=== PATIENT | male | born 1945 | race African-American/Black ===

== ENCOUNTER 2017-01-01 20:43 | Emergency (ER) | payer OTHER, MEDICARE ==
[~2017-01-01] VITALS: Ht 182.9 cm; Wt 136.5 kg
[2017-01-01 21:49] VITALS: BP 113/68; PULSE 76; RESP 18; TEMP 99; O2SAT 96
--- NOTE | 2017-01-01 22:06 | PD ---
HPI Chief Complaint: Pain: Acute or Chronic Time Seen by Provider: 22:06 Travel History International Travel<30 days: No Contact w/Intl Traveler<30days: No Traveled to known affect area: No History of Present Illness HPI 71 year old male with history of gout presents to the ED via EVAC for evaluation of bilateral great toe pain. Pain is rated 8/10, 10/10 on attempted ambulation. He denies numbness, tingling, limitations to range of motion or loss of strength of either lower extremity. Patient states that he is having a gout flare, pain is the same pain he's had in the past. He states that he is prescribed allopurinol and gabapentin, last dose of medication 8 am. [facility] but that there are medications "don't do anything for my pain. PFSH Past Medical History Cardiovascular Problems: Yes (HTN) Diabetes: Yes Social History Tobacco Use: No Allergies-Medications (Allergen,Severity, Reaction): Coded Allergies: No Known Allergies (Unverified , 01/01/17) Reported Meds & Prescriptions Reported Meds & Active Scripts Active Lortab (Hydrocodone-Acetaminophen) 5-325 Mg Tab 1 Tab PO Q6H PRN Reported Novolog Mix 70-30 Inj (Insulin Aspart Prota 70%/Aspart 30%) 1,000 Unit/10 Ml Vial 1 Units SQ Atenolol 100 Mg Tab 100 Mg PO DAILY Allopurinol 100 Mg Tab 100 Mg PO DAILY Aspirin Low Dose (Aspirin) 81 Mg Chew 81 Mg CHEW DAILY Amlodipine (Amlodipine Besylate) 10 Mg Tab 10 Mg PO DAILY Lasix (Furosemide) 20 Mg Tab 20 Mg PO DAILY Lisinopril 40 Mg Tab 40 Mg PO DAILY Lyrica (Pregabalin) 100 Mg Cap 100 Mg PO TID Review of Systems Except as stated in HPI: all other systems reviewed are Neg Physical Exam Narrative GENERAL: Well-nourished, well-developed irritable black male sitting on the end of the stretcher with his feet dangling to the ground. SKIN: Warm and dry. HEAD: Normocephalic. EYES: No scleral icterus. No injection or drainage. NECK: Supple, trachea midline. No JVD or lymphadenopathy. CARDIOVASCULAR: Regular rate and rhythm without murmurs, gallops, or rubs. RESPIRATORY: Breath sounds equal bilaterally. No accessory muscle use. GASTROINTESTINAL: Abdomen soft, non-tender, nondistended. MUSCULOSKELETAL: 2+ DP pulses bilaterally. TTP of bilateral MCP joints of the great toes. Patient is able to flex and extend the toes bilaterally. No edema. No warmth. No erythema. Neurovascularly intact. BACK: Nontender without obvious deformity. No CVA tenderness. Data Data Last Documented VS Vital Signs Date Time Temp Pulse Resp B/P Pulse Ox O2 Delivery O2 Flow Rate FiO2 01/01/17 21:49 99.0 76 18 113/68 96 Orders Acetamin-Hydrocod 325-7.5 Mg ([place] 7.5 (01/01/17 22:15) Gabapentin (Neurontin) (01/01/17 22:15) Crutches (01/01/17 22:54) MDM Medical Decision Making Medical Screen Exam Complete: Yes Emergency Medical Condition: Yes Differential Diagnosis Polyarthropathy versus gout versus malingering versus acute on chronic pain versus septic arthritis versus other Narrative Course 71 year old male with history of gout presents to the ED via EVAC for evaluation of bilateral great toe pain. Pain is rated 8/10, 10/10 on attempted ambulation. He denies numbness, tingling, limitations to range of motion or loss of strength of either lower extremity. Patient states that he is having a gout flare, pain is the same pain he's had in the past. He states that he is prescribed allopurinol and gabapentin, last dose of medication 8 am. [facility] but that there are medications "don't do anything for my pain." Vitals reviewed. Physical exam reveals an-year-old black male sitting up on the stretcher, legs dangling over towards the floor. 2 + DP pulses bilaterally. TTP of bilateral MCP joints of the great toes. Patient is able to flex and extend the toes bilaterally. No edema. No warmth. No erythema. Neurovascularly intact. This is gout flare. Patient was administered by mouth Lortab and gabapentin. Recheck reveals improvement of symptoms after 25 minutes. I stressed the importance of symptomatic care, compliance with his medications. I instructed the patient to follow up with the primary care provider, increases allopurinol dose to 1 whole pill daily for the next week. I provided #7 5 mg Lortab for pain greater than 6 on the pain scale. The patient requested a pair of crutches and they were provided. He indicated understanding instructions and was amenable to plan of care. He stable and discharged home. Diagnosis Primary Impression: Gout flare Qualified Code: M10.9 - Acute gout involving toe, unspecified cause, unspecified laterality Referrals: Primary Care Physician Patient Instructions: General Instructions, Gout (ED) Additional Instructions: Rest, ice, elevate the extremities. Apply ice no longer than 10-15 minutes per hour a few times a day. Take allopurinol and gabapentin as prescribed as discussed. Lortab 5 mg every 6-8 hours when necessary pain greater than 6 on the pain scale. Return to normal, gentle activity as tolerated. Follow up with your primary care provider this week. Return to the ED for any urgent or emergent medical condition. Scripts Hydrocodone-Acetaminophen (Lortab)5-325 Mg Tab1 Tab PO Q6H PRN (PAIN) #7 TAB Ref 0 Prov:Todd Alcocer MD 01/01/17 Disposition: 01 DISCHARGE HOME Condition: Stable Gisela Newberry Jan 01, 2017 22:06
[2017-01-01] MEDS ORDERED: LYRI100C PO (22:13)
[2017-01-01] MEDS ORDERED: ATEN100T PO (22:13)
[2017-01-01] MEDS ORDERED: LISI40TA PO (22:13)
[2017-01-01] MEDS ORDERED: AMLO10TA2 PO (22:13)
[2017-01-01] MEDS ORDERED: FURO1TAB62 PO (22:13)
[2017-01-01] MEDS ORDERED: ALLO100T PO (22:13)
[2017-01-01] MEDS ORDERED: ASPI81CH37 CHEW (22:13)
[2017-01-01] MEDS ORDERED: NOVOLOGMXP SQ (22:13)
[2017-01-01] MEDS ORDERED: ACETAMINOPHEN/HYDROcodone 325 MG/7.5 MG TAB PO ONE (22:15)
[2017-01-01] MEDS ORDERED: GABAPENTIN 100 MG CAP PO ONE (22:15)
[2017-01-01] MEDS ORDERED: HYDR-3533 PO (22:48)
== END 2017-01-01 23:14 | disposition home or self-care (01) ==
LOC: PHEFT 20:43
DX: M10.9 Gout, unspecified (principal); I10 Essential (primary) hypertension; E11.9 Type 2 diabetes mellitus without complications; Z79.4 Long term (current) use of insulin
CPT/HCPCS: 99283; E0113

== ENCOUNTER 2017-02-04 14:39 | Inpatient (IN) | payer MEDICARE, OTHER ==
[~2017-02-04] VITALS: Ht 180.3 cm; Wt 135.5 kg
[~2017-02-04 14:39] MED LIST: ALLO100T PO; AMLO10TA2 PO; ASPI81CH37 CHEW; ATEN100T PO; FURO1TAB62 PO; HYDR-3533 PO; LISI40TA PO; LYRI100C PO; NOVOLOGMXP SQ
[2017-02-04 14:46] VITALS: BP 138/59; PULSE 77; RESP 18
[2017-02-04] MEDS ORDERED: COLA100C3 PO (14:58)
--- NOTE | 2017-02-04 14:58 | PD ---
HPI Chief Complaint: Edema Time Seen by Provider: 14:56 Travel History International Travel<30 days: No Contact w/Intl Traveler<30days: No Traveled to known affect area: No History of Present Illness HPI 71-year-old male with history of gout, hypertension, DM presents to the ED for evaluation of pain and swelling of bilateral great toes and feet. Gradual onset. Patient endorses chronic diminished sensation in bilateral feet secondary to DM. He endorses recent history of anorexia and anuria. States he' s urinated once in the last 24 hours. States that he's had low appetite for the "last few days." Last BM "about a week ago" well formed, NBNB. He denies fevers , chills, chest pain, SOB, injury to the area, weakness or limitations to range of motion. He states that the pain is 8/10, 10/10 with attempted ambulation. He was seen in the [facility] ED on 01/01/17. He was instructed to double his allopurinol dose for 1 week, provided a brief course of narcotic pain medications. The patient states that he was compliant with the instructions and was ambulatory for approximately one week. However, [facility] not [facility]. PFSH Past Medical History Cardiovascular Problems: Yes (HBP) Diabetes: Yes (INSULIN) Patient Takes Glucophage: No (INSULIN) Diminished Hearing: No Gout: Yes Hypertension: Yes Medical other: Yes (DM) Tetanus Vaccination: < 5 Years Influenza Vaccination: Yes Past Surgical History Other Surgery: Yes (colonoscopy) Social History Alcohol Use: No Tobacco Use: No Substance Use: No Allergies-Medications (Allergen,Severity, Reaction): Coded Allergies: No Known Allergies (Unverified , 02/04/17) Reported Meds & Prescriptions Reported Meds & Active Scripts Active Lortab (Hydrocodone-Acetaminophen) 5-325 Mg Tab 1 Tab PO Q6H PRN Reported Colace (Docusate Sodium) 100 Mg Cap 100 Mg PO BID Novolog Mix 70-30 Inj (Insulin Aspart Prota 70%/Aspart 30%) 1,000 Unit/10 Ml Vial 1 Units SQ Atenolol 100 Mg Tab 100 Mg PO DAILY Allopurinol 100 Mg Tab 100 Mg PO DAILY Aspirin Low Dose (Aspirin) 81 Mg Chew 81 Mg CHEW DAILY Amlodipine (Amlodipine Besylate) 10 Mg Tab 10 Mg PO DAILY Lasix (Furosemide) 20 Mg Tab 20 Mg PO DAILY Lisinopril 40 Mg Tab 40 Mg PO DAILY Lyrica (Pregabalin) 100 Mg Cap 100 Mg PO TID Review of Systems Except as stated in HPI: all other systems reviewed are Neg Physical Exam Narrative GENERAL: Well-nourished, well-developed pleasant black male in no acute distress. SKIN: Focused skin assessment warm/dry. HEAD: Normocephalic. EYES: No scleral icterus. No injection or drainage. NECK: Supple, trachea midline. No JVD or lymphadenopathy. CARDIOVASCULAR: Regular rate and rhythm without murmurs, gallops, or rubs. 2+ DP and radial pulses bilaterally. RESPIRATORY: Breath sounds clear and equal bilaterally. No accessory muscle use. GASTROINTESTINAL: Abdomen soft, non-tender, nondistended. Active bowel sounds. MUSCULOSKELETAL: No cyanosis. 2+ pretibial edema to the knees bilaterally. Tenderness to palpation of bilateral MP joints. No warmth or erythema. Patient retains full, active, painless range of motion of the lower extremities. Neurovascularly intact. BACK: Nontender without obvious deformity. No CVA tenderness. Data Data Last Documented VS Vital Signs Date Time Temp Pulse Resp B/P Pulse Ox O2 Delivery O2 Flow Rate FiO2 02/04/17 16:41 97.8 69 17 112/65 99 Room Air Orders Complete Blood Count With Diff (02/04/17 15:00) Comprehensive Metabolic Panel (02/04/17 15:00) Urinalysis - C+S If Indicated (02/04/17 15:00) Iv Access Insert/Monitor (02/04/17 15:00) Ecg Monitoring (02/04/17 15:00) Oximetry (02/04/17 15:00) B-Type Natriuretic Peptide (02/04/17 15:00) Westergren Sedimentation Rate (02/04/17 15:02) C-Reactive Protein (Crp) (02/04/17 15:02) Uric Acid (02/04/17 15:02) Gabapentin (Neurontin) (02/04/17 15:15) Acetamin-Hydrocod 325-5 Mg ([place] 5-325 (02/04/17 15:15) Sodium Chlor 0.9% 1000 Ml Inj (Ns 1000 M (02/04/17 17:15) Admit Order (Ed Use Only) (02/04/17 17:07) Labs Laboratory Tests Test 02/04/17 15:11 White Blood Count 8.0 TH/MM3 Red Blood Count 4.99 MIL/MM3 Hemoglobin 13.2 GM/DL Hematocrit 39.9 % Mean Corpuscular Volume 80.0 FL Mean Corpuscular Hemoglobin 26.5 PG Mean Corpuscular Hemoglobin 33.1 % Concent Red Cell Distribution Width 14.8 % Platelet Count 202 TH/MM3 Mean Platelet Volume 8.6 FL Neutrophils (%) (Auto) 63.5 % Lymphocytes (%) (Auto) 21.8 % Monocytes (%) (Auto) 13.8 % Eosinophils (%) (Auto) 0.6 % Basophils (%) (Auto) 0.3 % Neutrophils # (Auto) 5.1 TH/MM3 Lymphocytes # (Auto) 1.7 TH/MM3 Monocytes # (Auto) 1.1 TH/MM3 Eosinophils # (Auto) 0.0 TH/MM3 Basophils # (Auto) 0.0 TH/MM3 CBC Comment DIFF FINAL Differential Comment Erythrocyte Sedimentation Rate 59 mm/hr Sodium Level 138 MEQ/L Potassium Level 3.7 MEQ/L Chloride Level 101 MEQ/L Carbon Dioxide Level 30.5 MEQ/L Anion Gap 7 MEQ/L Blood Urea Nitrogen 32 MG/DL Creatinine 2.21 MG/DL Estimat Glomerular Filtration 36 ML/MIN Rate Random Glucose 172 MG/DL Uric Acid 8.2 MG/DL Calcium Level 9.5 MG/DL Total Bilirubin 1.0 MG/DL Aspartate Amino Transf 70 U/L (AST/SGOT) Alanine Aminotransferase 46 U/L (ALT/SGPT) Alkaline Phosphatase 114 U/L C-Reactive Protein 15.00 MG/DL B-Type Natriuretic Peptide 4 PG/ML Total Protein 7.8 GM/DL Albumin 2.6 GM/DL [facility] Medical Decision Making Medical Screen Exam Complete: Yes Emergency Medical Condition: Yes Differential Diagnosis gout versus diabetic neuropathy versus DVT versus dependent edema versus CHF versus ANT versus other Narrative Course 71-year-old male with history of gout, hypertension, DM presents to the ED for evaluation of pain and swelling of bilateral great toes and feet. Gradual onset. Pain rated 8/10, 10/10 with ambulation. Patient endorses chronic diminished sensation in bilateral feet secondary to DM. States he's urinated once in the last 24 hours. States that he's had low appetite for the "last few days." Last BM "about a week ago" well formed, NBNB. He denies fevers, chills, chest pain, SOB, injury to the area, weakness or limitations to range of motion. Follow[facility] by [facility] in [place]. Vitals reviewed. Physical exam reveals a pleasant white male in no acute distress. CTAB, abdomen soft, nontender. No CVA tenderness. 2+ pitting edema to the knees bilaterally. Positive tenderness to palpation of the MP joint of bilateral feet. No limitations to range of motion. Neurovascularly intact. IV was established. Patient was placed on continuous monitoring. CBC: No leukocytosis or anemia. CMP: BUN 32, creatinine 2.21. No records available to evaluate patient's baseline. ESR 59, CRP 15, uric acid 8.2. Bladder scan: 0cc urine in bladder UA: unable to obtain Patient was administered a liter of normal saline, by mouth [place] and gabapentin. He did report some improvement of his symptoms. I discussed the results of the workup with the patient. He does endorse distant history of acute kidney injury secondary to metformin misuse some years ago. He is unsure of his baseline creatinine. He states he does not see a underwear finisher. I recommend admission and the patient is amenable. Discussed the case with Dr. Daniel, given his elevated creatinine and anuria will admit for ANT and gout. I discussed the patient with Dr. Cueto who agrees to accept him to the medical service. Please see his notes for disposition. Diagnosis Primary Impression: ANT (acute kidney injury) Additional Impression: Gout flare Qualified Code: M10.9 - Acute gout involving toe, unspecified cause, unspecified laterality Gisela Newberry Feb 04, 2017 14:58 Gisela Newberry Feb 04, 2017 14:58
[2017-02-04 15:01] VITALS: RESP 17; O2SAT 99
[2017-02-04] MEDS ORDERED: GABAPENTIN 100 MG CAP PO ONE (15:15)
[2017-02-04] MEDS ORDERED: ACETAMINOPHEN/HYDROcodone 325 MG/5 MG TAB PO ONE (15:15)
[2017-02-04 15:45] LABS: AUTOMATED NEUTROPHIL # 5.1 TH/MM3 (1.8-7.7); BASOPHIL % 0.3 % (0.0-2.0); EOSINOPHIL % 0.6 % (0.0-4.0); HEMATOCRIT 39.9 % (39.0-51.0); HEMO FLAGS DIFF FINAL; LYMPH % 21.8 % (9.0-44.0); LYMPHOCYTE # 1.7 TH/MM3 (1.0-4.8); MEAN CORPUSCULAR HEMOGLOBIN 26.5 PG (27.0-34.0); MEAN CORPUSCULAR HGB CONC 33.1 % (32.0-36.0); MONO % 13.8 % (0.0-8.0); NEUT % 63.5 % (16.0-70.0); PLATELET COUNT 202 TH/MM3 (150-450); RED BLOOD COUNT 4.99 MIL/MM3 (4.50-5.90); RED CELL DISTRIBUTION WIDTH 14.8 % (11.6-17.2)
[2017-02-04 16:11] LABS: ALKALINE PHOSPHATASE 114 U/L (45-117); ALT (GPT) 46 U/L (12-78); ANION GAP 7 MEQ/L (5-15); AST (GOT) 70 U/L (15-37); BICARBONATE 30.5 MEQ/L (21.0-32.0); BLOOD UREA NITROGEN 32 MG/DL (7-18); CHLORIDE 101 MEQ/L (98-107); GLOMERULAR FILTRATION RATE 36 ML/MIN (>89); POTASSIUM 3.7 MEQ/L (3.5-5.1); SODIUM (NA) 138 MEQ/L (136-145)
[2017-02-04 16:24] LABS: URIC ACID 8.2 MG/DL (2.6-7.2)
[2017-02-04 16:41] VITALS: BP 112/65; PULSE 69; RESP 17; TEMP 97.8; O2SAT 99
[2017-02-04] MEDS ORDERED: SODIUM CHLOR 0.9% 1000 ML INJ 1,000 ML IV ONE (17:15)
[2017-02-04] MEDS ORDERED: DEXTROSE 50% IN WATER 50 ML VIAL(D50) IV PUSH PRN (17:30)
[2017-02-04] MEDS ORDERED: GLUCAGON 1 MG/ML VIAL OTHER PRN (17:30)
[2017-02-04] MEDS ORDERED: ACETAMINOPHEN/HYDROcodone 325 MG/5 MG TAB PO PRN (17:30)
[2017-02-04] MEDS ORDERED: SODIUM CHLORID 0.9% 500 ML INJ 500 ML IV ONE (17:30)
[2017-02-04] MEDS ORDERED: ACETAMINOPHEN 325 MG TAB PO PRN (17:30)
--- NOTE | 2017-02-04 17:46 | HHI.HP ---
[facility] Primary [facility] Physician No Primary Care Physician Admission Diagnosis ANT, gout flare Diagnoses: (1) Gout flare Diagnosis: Principal Chief Complaint: pain to both feet Travel History International Travel<30 Days: No Contact w/Intl Traveler <30 Da: No Traveled to Known Affected Are: No History of Present Illness patient is a 71 y/o male with history of gout, diabetes and hypertension who presented to ER with pain to both feet. he was seen in ER about a month ago with the same complaint and was discharged home with the impression of gout flare-up. he says that he did well till three days ago when he started to have pain to both feet again. pain is more localized to great toes.he denies any fever or chills but he says that his pain is worse when he's walking. Review of Systems Constitutional: DENIES: Fever, Weight loss, Chills, Night Sweats Eyes: DENIES: Blurred vision, Diplopia, Vision loss, Double Vision Ears, nose, mouth, throat: DENIES: Tinnitus, Vertigo, Throat pain, Epistaxis Respiratory: DENIES: Apneas, Cough, Snoring, Wheezing, Hemoptysis, Sputum production, Shortness of breath Cardiovascular: DENIES: Chest pain, Palpitations, Syncope, Dyspnea on Exertion , PND, Lower Extremity Edema, Orthopnea, Claudication Gastrointestinal: DENIES: Abdominal pain, Black stools, Bloody stools, Constipation, Diarrhea, Nausea, Vomiting, Difficulty Swallowing, Anorexia Genitourinary: DENIES: Urinary frequency, Urgency, Hematuria, Dysuria Musculoskeletal: COMPLAINS OF: Joint pain (both feet.), DENIES: Muscle aches, Stiffness, Joint Swelling Integumentary: DENIES: Rash Neurologic: DENIES: Abnormal gait, Headache, Localized weakness, Paresthesias, Seizures, Speech Problems, Tremor, Poor Balance Psychiatric: DENIES: Anxiety, Confusion, Mood changes, Depression, Hallucinations, Agitation, Suicidal Ideation, Homicidal Ideation, Delusions Past Family Social History Past Medical History diabetes mellitus hypertension gout history of colon cancer Past Surgical History colon resection Reported Medications Colace (Docusate Sodium) 100 Mg Cap 100 Mg PO BID Novolog Mix 70-30 Inj (Insulin Aspart Prota 70%/Aspart 30%) 1,000 Unit/10 Ml Vial 1 Units SQ Atenolol 100 Mg Tab 100 Mg PO DAILY Allopurinol 100 Mg Tab 100 Mg PO DAILY Aspirin Low Dose (Aspirin) 81 Mg Chew 81 Mg CHEW DAILY Amlodipine (Amlodipine Besylate) 10 Mg Tab 10 Mg PO DAILY Lasix (Furosemide) 20 Mg Tab 20 Mg PO DAILY Lisinopril 40 Mg Tab 40 Mg PO DAILY Lyrica (Pregabalin) 100 Mg Cap 100 Mg PO TID Allergies: Coded Allergies: No Known Allergies (Unverified , 02/04/17) Active Ordered Medications Current Medications Gabapentin (Neurontin) 100 mg ONCE ONCE PO Last administered on 02/04/17 15: 15; Start 02/04/17 at 15:15; Stop 02/04/17 at 15:16; Status DC Acetaminophen/ Hydrocodone Bitart 1 tab 1 tab ONCE ONCE PO Last administered on 02/04/17 15:16; Start 02/04/17 at 15:15; Stop 02/04/17 at 15:16; Status DC Sodium Chloride (NS 1000 ml Inj) 1,000 ml @ 999 mls/hr BOLUS ONCE IV Last administered on 02/04/17 17:09; Start 02/04/17 at 17:15; Stop 02/04/17 at 18:15 Social History doesn't smoke or drink. Physical Exam Vital Signs Vital Signs Date Time Temp Pulse Resp B/P Pulse Ox O2 Delivery O2 Flow Rate FiO2 02/04/17 16:41 97.8 69 17 112/65 99 Room Air 02/04/17 16:16 16 02/04/17 15:01 17 99 Room Air 02/04/17 14:51 69 18 98 Room Air 02/04/17 14:46 77 18 138/59 Physical Exam GENERAL: This is a well-nourished, well-developed patient, in no apparent distress. SKIN: No rashes, ecchymoses or lesions. Cool and dry. HEAD: Atraumatic. Normocephalic. No temporal or scalp tenderness. EYES: Pupils equal round and reactive. Extraocular motions intact. No scleral icterus. No injection or drainage. ENT: Nose without bleeding, purulent drainage or septal hematoma. Throat without erythema, tonsillar hypertrophy or exudate. Uvula midline. Airway patent. NECK: Trachea midline. No JVD or lymphadenopathy. Supple, nontender, no meningeal signs. CARDIOVASCULAR: Regular rate and rhythm without murmurs, gallops, or rubs. RESPIRATORY: Clear to auscultation. Breath sounds equal bilaterally. No wheezes , rales, or rhonchi. GASTROINTESTINAL: Abdomen soft, non-tender, nondistended. No hepato-splenomegaly , or palpable masses. No guarding. MUSCULOSKELETAL: both feet are swollen and great toes are tender to touch NEUROLOGICAL: Awake and alert. Cranial nerves II through XII intact. Motor and sensory grossly within normal limits. Five out of 5 muscle strength in all muscle groups. Normal speech. Laboratory Laboratory Tests Test 02/04/17 15:11 White Blood Count 8.0 Red Blood Count 4.99 Hemoglobin 13.2 Hematocrit 39.9 Mean Corpuscular Volume 80.0 Mean Corpuscular Hemoglobin 26.5 Mean Corpuscular Hemoglobin 33.1 Concent Red Cell Distribution Width 14.8 Platelet Count 202 Mean Platelet Volume 8.6 Neutrophils (%) (Auto) 63.5 Lymphocytes (%) (Auto) 21.8 Monocytes (%) (Auto) 13.8 Eosinophils (%) (Auto) 0.6 Basophils (%) (Auto) 0.3 Neutrophils # (Auto) 5.1 Lymphocytes # (Auto) 1.7 Monocytes # (Auto) 1.1 Eosinophils # (Auto) 0.0 Basophils # (Auto) 0.0 CBC Comment DIFF FINAL Differential Comment Erythrocyte Sedimentation Rate 59 Sodium Level 138 Potassium Level 3.7 Chloride Level 101 Carbon Dioxide Level 30.5 Anion Gap 7 Blood Urea Nitrogen 32 Creatinine 2.21 Estimat Glomerular Filtration 36 Rate Random Glucose 172 Uric Acid 8.2 Calcium Level 9.5 Total Bilirubin 1.0 Aspartate Amino Transf 70 (AST/SGOT) Alanine Aminotransferase 46 (ALT/SGPT) Alkaline Phosphatase 114 C-Reactive Protein 15.00 B-Type Natriuretic Peptide 4 Total Protein 7.8 Albumin 2.6 Result Diagram: 02/04/17 1511 02/04/17 1511 Assessment and Plan Assessment and Plan A/P - gouty arthritis will start prednisone in light of renal insufficiency- continue pain control -renal insufficiency of unknown duration ; likely chronic since he says that he knew about his kidney dysfunction. gentle IV hydration and repeat BMP in am. -diabetes mellitus; resume home insulin regimen- accu-check with SSI -hypertension'; hold lisinopril for now- -DVT prophylaxis with subq heparin Discussed Condition With ER and the patient. Problem Qualifiers (1) Gout flare: Qualified Code: M10.9 - Acute gout involving toe, unspecified cause, unspecified laterality Tad Szymanski MD Feb 04, 2017 17:46
[2017-02-04] MEDS: predniSONE 20 MG TAB PO SCH (17:51)
[2017-02-04] MEDS: PREGABALIN 100 MG CAP PO SCH (17:57)
[2017-02-04 20:20] VITALS: BP 123/67; PULSE 79; RESP 17; O2SAT 96
[2017-02-04 21:00] VITALS: BP 127/66; PULSE 80; RESP 18; TEMP 97.3; O2SAT 91
[2017-02-04] MEDS: INSULIN ASPART SUPPLEMENTAL SCALE SQ SCH (22:04)
[2017-02-04] MEDS: HEPARIN SODIUM - SQ 10,000 UNITS/ML VIAL SQ SCH (22:04)
[2017-02-04 23:27] VITALS: BP 126/66; PULSE 64; RESP 16; TEMP 97.4; O2SAT 92
[2017-02-04 23:43] LABS: BLOOD, URINE NEG (NEG); COMMENT (UR) CULT NOT INDICATED; CULTURE IF INDICATED CULT NOT INDICATED; GLUCOSE,URINE NEG (NEG); KETONE, URINE NEG (NEG); MUCUS URINE FEW /lpf (OCC); NITRITE,URINE NEG (NEG); URINE COLOR YELLOW (YELLW/STRAW)
[2017-02-05] VITALS: BP 135/70; PULSE 74; RESP 18; TEMP 98.6; O2SAT 91
[2017-02-05 04:00] VITALS: BP 119/69; PULSE 71; RESP 18; TEMP 97.2; O2SAT 92
[2017-02-05] MEDS: INSULIN ASPART SUPPLEMENTAL SCALE SQ SCH ×4 (06:28→20:57)
[2017-02-05 08:00] VITALS: BP 134/72; PULSE 73; RESP 16; TEMP 97.2; O2SAT 95
[2017-02-05] MEDS: INSULIN ASPAR PROT 70/30 1,000 UNITS/10 ML VIAL SQ SCH ×2 (08:00→16:28)
[2017-02-05] MEDS ORDERED: ATENOLOL 100 MG TAB PO SCH (09:00)
[2017-02-05 09:23] LABS: BICARBONATE 26.6 MEQ/L (21.0-32.0); POTASSIUM 4.1 MEQ/L (3.5-5.1)
[2017-02-05] MEDS: ASPIRIN 81 MG CHEW TAB CHEW SCH (09:51)
[2017-02-05] MEDS: predniSONE 20 MG TAB PO SCH (09:51)
[2017-02-05] MEDS: PREGABALIN 100 MG CAP PO SCH ×3 (09:52→19:27)
[2017-02-05] MEDS: HEPARIN SODIUM - SQ 10,000 UNITS/ML VIAL SQ SCH ×2 (09:52→20:57)
--- NOTE | 2017-02-05 11:31 | HHI.PR ---
Subjective Remarks pain and swelling of the feet is better today. no fever. no other new complaints. Objective Vitals Vital Signs Date Time Temp Pulse Resp B/P Pulse Ox O2 Delivery O2 Flow Rate FiO2 02/05/17 04:00 97.2 71 18 119/69 92 02/05/17 00:00 98.6 74 18 135/70 91 02/04/17 21:00 97.3 80 18 127/66 91 02/04/17 20:20 79 17 123/67 96 Room Air 02/04/17 18:39 17 02/04/17 16:41 97.8 69 17 112/65 99 Room Air 02/04/17 16:16 16 02/04/17 15:01 17 99 Room Air 02/04/17 14:51 69 18 98 Room Air 02/04/17 14:46 77 18 138/59 I/O 02/04/17 02/04/17 02/04/17 02/05/17 02/05/17 02/05/17 07:00 15:00 23:00 07:00 15:00 23:00 Intake Total 440 ml 720 ml Output Total 675 ml Balance -235 ml 720 ml Intake Oral 440 ml 240 ml IV Total 480 ml Output Urine Total 675 ml Bladder Scan Volume Amount 0 ml # Voids 1 # Bowel Movements 0 0 Result Diagram: 02/04/17 1511 02/05/17 0740 Objective Remarks GENERAL: This is a well-nourished, well-developed patient, in no apparent distress. CARDIOVASCULAR: Regular rate and regular rhythm without murmurs, gallops, or rubs. RESPIRATORY: Clear to auscultation. Breath sounds equal bilaterally. No wheezes , rales, or rhonchi. GASTROINTESTINAL: Abdomen soft, non-tender, nondistended. Normal, active bowel sounds MUSCULOSKELETAL: swelling of the feet has improved. NEURO: Alert & Oriented x4 to person, place, time, situation. Moves all ext x4 Procedures none Medications and IVs Current Medications Gabapentin (Neurontin) 100 mg ONCE ONCE PO Last administered on 02/04/17 15: 15; Start 02/04/17 at 15:15; Stop 02/04/17 at 15:16; Status DC Acetaminophen/ Hydrocodone Bitart 1 tab 1 tab ONCE ONCE PO Last administered on 02/04/17 15:16; Start 02/04/17 at 15:15; Stop 02/04/17 at 15:16; Status DC Sodium Chloride (NS 1000 ml Inj) 1,000 ml @ 999 mls/hr BOLUS ONCE IV Last administered on 02/04/17 17:09; Start 02/04/17 at 17:15; Stop 02/04/17 at 18:15 ; Status DC Dextrose (D50w (Vial) Inj) 25 ml UNSCH PRN IV PUSH HYPOGLYCEMIA-SEE COMMENTS; Start 02/04/17 at 17:30 Glucagon (Glucagon Inj) 1 mg UNSCH PRN OTHER HYPOGLYCEMIA-SEE COMMENTS; Start 02/04/17 at 17:30 Insulin Aspart 1 1 ACHS SLIDING SCALE SQ Last administered on 02/05/17 06:28 ; Start 02/04/17 at 21:00 Sodium Chloride (NS 500 ml Inj) 500 ml @ 60 mls/hr Q8H20M ONCE IV Last administered on 02/04/17 17:51; Start 02/04/17 at 17:30; Stop 02/05/17 at 01:49 ; Status DC Prednisone (Deltasone) 40 mg DAILY PO Last administered on 02/05/17 09:51; Start 02/04/17 at 18:00 Acetaminophen (Tylenol) 650 mg Q4H PRN PO FEVER/PAIN < 5; Start 02/04/17 at 17: 30 Acetaminophen/ Hydrocodone Bitart ([place] 5-325 Mg) 1 tab Q4H PRN PO PAIN > 5; Start 02/04/17 at 17:30 Amlodipine Besylate (Norvasc) 10 mg DAILY PO Last administered on 02/05/17 09: 52; Start 02/05/17 at 09:00 Aspirin (Aspirin Chew) 81 mg DAILY CHEW Last administered on 02/05/17 09:51; Start 02/05/17 at 09:00 Atenolol (Tenormin) 100 mg DAILY PO Last administered on 02/05/17 09:52; Start 02/05/17 at 09:00 Pregabalin (Lyrica) 100 mg TID PO Last administered on 02/05/17 09:52; Start 02/04/17 at 18:00 Insulin Aspart Prota 70%/Aspart 30% (NovoLOG MIX 70/ 30 INJ) 60 units BID@08,17 SQ Last administered on 02/05/17 08:00; Start 02/05/17 at 08:00 Heparin Sodium (Porcine) (Heparin Inj) 5,000 units Q12HR SQ Last administered on 02/05/17 09:52; Start 02/04/17 at 21:00 A/P Assessment and Plan A/P - gouty arthritis- improving continue prednisone in light of renal insufficiency- continue pain control -renal insufficiency of unknown duration ; likely chronic since he says that he knew about his kidney dysfunction. continue gentle IV hydration and repeat BMP in am to ensure stability. -diabetes mellitus; resumed home insulin regimen- accu-check with SSI -hypertension'; hold lisinopril for now- -DVT prophylaxis with subq heparin Discharge Planning dc home tomorrow if stable. Tad Szymanski MD Feb 05, 2017 11:31
[2017-02-05] MEDS ORDERED: SODIUM CHLORID 0.9% 500 ML INJ 500 ML IV ONE (11:45)
[2017-02-05 12:00] VITALS: BP 126/69; PULSE 71; RESP 16; TEMP 98; O2SAT 96
[2017-02-05] MEDS ORDERED: DOCUSATE SODIUM 50 MG/SENNA 8.6 MG TAB PO PRN (13:00)
[2017-02-05 16:00] VITALS: BP 124/62; PULSE 66; RESP 18; TEMP 97.7; O2SAT 94
[2017-02-05 20:36] VITALS: BP 120/69; PULSE 68; RESP 16; TEMP 97.7; O2SAT 96
[2017-02-06 04:07] VITALS: BP 124/69; PULSE 63; RESP 16; TEMP 97.6; O2SAT 93
[2017-02-06] MEDS: INSULIN ASPART SUPPLEMENTAL SCALE SQ SCH ×2 (06:18→12:15)
[2017-02-06 07:51] LABS: BICARBONATE 24.1 MEQ/L (21.0-32.0); POTASSIUM 4.4 MEQ/L (3.5-5.1)
[2017-02-06 08:00] VITALS: BP 142/79; PULSE 51; RESP 16; TEMP 97.3; O2SAT 95
[2017-02-06] MEDS ORDERED: MAGNESIUM HYDROXIDE SUSP 30 ML CUP PO PRN (09:00)
--- NOTE | 2017-02-06 09:09 | HHI.PR ---
Subjective Remarks resting comfortably with no distress. afebrile. pain and swelling of the feet has much improved. wants to go home. d/w the RN. Objective Vitals Vital Signs Date Time Temp Pulse Resp B/P Pulse Ox O2 Delivery O2 Flow Rate FiO2 02/06/17 08:00 97.3 51 16 142/79 95 02/06/17 04:07 97.6 63 16 124/69 93 02/05/17 20:36 97.7 68 16 120/69 96 02/05/17 16:00 97.7 66 18 124/62 94 02/05/17 14:10 20 02/05/17 13:07 18 02/05/17 12:00 98.0 71 16 126/69 96 I/O 02/05/17 02/05/17 02/05/17 02/06/17 02/06/17 02/06/17 07:00 15:00 23:00 07:00 15:00 23:00 Intake Total 720 ml 480 ml 1608 ml 0 ml Output Total 900 ml 1400 ml 450 ml Balance 720 ml -420 ml 208 ml -450 ml Intake Oral 240 ml 480 ml 960 ml 0 ml IV Total 480 ml 648 ml Output Urine Total 900 ml 1400 ml 450 ml # Voids 1 # Bowel Movements 0 0 0 0 Result Diagram: 02/04/17 1511 02/06/17 0517 Objective Remarks GENERAL: This is a well-nourished, well-developed patient, in no apparent distress. CARDIOVASCULAR: Regular rate and regular rhythm without murmurs, gallops, or rubs. RESPIRATORY: Clear to auscultation. Breath sounds equal bilaterally. No wheezes , rales, or rhonchi. GASTROINTESTINAL: Abdomen soft, non-tender, nondistended. Normal, active bowel sounds MUSCULOSKELETAL: swelling of the feet has much improved. NEURO: Alert & Oriented x4 to person, place, time, situation. Moves all ext x4 Procedures none Medications and IVs Current Medications Gabapentin (Neurontin) 100 mg ONCE ONCE PO Last administered on 02/04/17 15: 15; Start 02/04/17 at 15:15; Stop 02/04/17 at 15:16; Status DC Acetaminophen/ Hydrocodone Bitart 1 tab 1 tab ONCE ONCE PO Last administered on 02/04/17 15:16; Start 02/04/17 at 15:15; Stop 02/04/17 at 15:16; Status DC Sodium Chloride (NS 1000 ml Inj) 1,000 ml @ 999 mls/hr BOLUS ONCE IV Last administered on 02/04/17 17:09; Start 02/04/17 at 17:15; Stop 02/04/17 at 18:15 ; Status DC Dextrose (D50w (Vial) Inj) 25 ml UNSCH PRN IV PUSH HYPOGLYCEMIA-SEE COMMENTS; Start 02/04/17 at 17:30 Glucagon (Glucagon Inj) 1 mg UNSCH PRN OTHER HYPOGLYCEMIA-SEE COMMENTS; Start 02/04/17 at 17:30 Insulin Aspart 1 1 ACHS SLIDING SCALE SQ Last administered on 02/06/17 06:18 ; Start 02/04/17 at 21:00 Sodium Chloride (NS 500 ml Inj) 500 ml @ 60 mls/hr Q8H20M ONCE IV Last administered on 02/04/17 17:51; Start 02/04/17 at 17:30; Stop 02/05/17 at 01:49 ; Status DC Prednisone (Deltasone) 40 mg DAILY PO Last administered on 02/05/17 09:51; Start 02/04/17 at 18:00 Acetaminophen (Tylenol) 650 mg Q4H PRN PO FEVER/PAIN < 5; Start 02/04/17 at 17: 30 Acetaminophen/ Hydrocodone Bitart (Dighton 5-325 Mg) 1 tab Q4H PRN PO PAIN > 5 Last administered on 02/05/17 11:54; Start 02/04/17 at 17:30 Amlodipine Besylate (Norvasc) 10 mg DAILY PO Last administered on 02/05/17 09: 52; Start 02/05/17 at 09:00 Aspirin (Aspirin Chew) 81 mg DAILY CHEW Last administered on 02/05/17 09:51; Start 02/05/17 at 09:00 Atenolol (Tenormin) 100 mg DAILY PO Last administered on 02/05/17 09:52; Start 02/05/17 at 09:00 Pregabalin (Lyrica) 100 mg TID PO Last administered on 02/05/17 19:27; Start 02/04/17 at 18:00 Insulin Aspart Prota 70%/Aspart 30% (NovoLOG MIX 70/ 30 INJ) 60 units BID@08,17 SQ Last administered on 02/05/17 16:28; Start 02/05/17 at 08:00 Heparin Sodium (Porcine) 5000 units 5,000 units Q12HR SQ Last administered on 20:57; Start 02/04/17 at 21:00 Sodium Chloride (NS 500 ml Inj) 500 ml @ 50 mls/hr Q10H ONCE IV Last administered on 02/05/17 11:55; Start 02/05/17 at 11:45; Stop 02/05/17 at 21:44 ; Status DC Senna/Docusate Sodium (Starla-Colace) 2 tab DAILY PRN PO CONSTIPATION; Start at 13:00 A/P Assessment and Plan A/P - gouty arthritis- improving continue prednisone in light of renal insufficiency- continue pain control -renal insufficiency ; likely acute kidney injury superimposed on chronic renal insufficiency ( he says that he knew about his kidney dysfunction)- now improved after IV hydration. -diabetes mellitus; resumed home insulin regimen- accu-check with [facility] blood sugar levels expected to improve as prednisone is being tapered off. -hypertension'; hold lisinopril for now- will consider resuming lisinopril if renal function remains stable- will defer to pcp. -bradycardia; will decrease the dose of atenolol to 50 mg po daily- f/u as outpatient. -DVT prophylaxis with subq heparin Discharge Planning dc home today after seen by PT. see med list. f/u by PCP. d/w the patient and Tad Garcia MD Feb 06, 2017 09:09
[2017-02-06] MEDS ORDERED: PRED5TAB PO (09:16)
[2017-02-06] MEDS ORDERED: HYDR-3533 PO (09:16)
[2017-02-06] MEDS ORDERED: ATEN50TA PO (09:16)
--- NOTE | 2017-02-06 09:19 | HHI.DCPOC ---
Discharge Care Plan Diagnosis: (1) Gout flare (2) ANT (acute kidney injury) Your Health Problems Are: Inflammation Swelling Chronic Pain Goals to Promote Your Health * To prevent worsening of your condition and complications * To maintain your health at the optimal level Directions to Meet Your Goals Take your medications as prescribed Follow your dietary instruction Follow activity as directed Keep your appointments as scheduled Take your immunizations and boosters as scheduled If your symptoms worsen call your PCP, if no PCP go to Urgent Care Center or Emergency Room Smoking is Dangerous to Your Health. Avoid second hand smoke Call the 24-hour hour crisis hotline for domestic abuse at Tad Szymanski MD Feb 06, 2017 09:19
[2017-02-06] MEDS: HEPARIN SODIUM - SQ 10,000 UNITS/ML VIAL SQ SCH (09:28)
[2017-02-06] MEDS: ASPIRIN 81 MG CHEW TAB CHEW SCH (09:28)
[2017-02-06] MEDS: PREGABALIN 100 MG CAP PO SCH (09:28)
[2017-02-06] MEDS: predniSONE 20 MG TAB PO SCH (09:28)
--- NOTE | 2017-02-06 09:28 | HHI.DS ---
Discharge Summary Admission Date Feb 04, 2017 at 18:01 Discharge Date: Feb 06, 2017 Admitting Diagnosis ANT, gout flare (1) Gout flare ICD Code: M10.9 Diagnosis: Principal Procedures none Brief History - From Admission patient is a 71 y/o male with history of gout, diabetes and hypertension who presented to ER with pain to both feet. he was seen in ER about a month ago with the same complaint and was discharged home with the impression of gout flare-up. he says that he did well till three days ago when he started to have pain to both feet again. pain is more localized to great toes.he denies any fever or chills but he says that his pain is worse when he's walking. CBC/BMP: 02/04/17 1511 02/06/17 0517 Significant Findings Laboratory Tests Test 02/04/17 02/04/17 02/05/17 02/06/17 15:11 23:15 07:40 05:17 Mean Corpuscular Hemoglobin 26.5 PG (27.0-34.0) Monocytes (%) (Auto) 13.8 % (0.0-8.0) Monocytes # (Auto) 1.1 TH/MM3 (0-0.9) Erythrocyte Sedimentation Rate 59 mm/hr (0-20) Blood Urea Nitrogen 32 MG/DL (7-18) 39 MG/DL (7-18) 38 MG/DL (7-18) Creatinine 2.21 MG/DL 2.16 MG/DL 1.74 MG/DL (0.60-1.30) (0.60-1.30) (0.60-1.30) Estimat Glomerular Filtration 36 ML/MIN (>89) 37 ML/MIN (>89) 47 ML/MIN (>89) Rate Random Glucose 172 MG/DL 245 MG/DL 198 MG/DL (74-106) (74-106) (74-106) Uric Acid 8.2 MG/DL (2.6-7.2) Aspartate Amino Transf 70 U/L (15-37) (AST/SGOT) C-Reactive Protein 15.00 MG/DL (0.00-0.30) Albumin 2.6 GM/DL (3.4-5.0) Urine Mucus FEW /lpf (OCC) Calcium Level 8.3 MG/DL (8.5-10.1) PE at Discharge GENERAL: This is a well-nourished, well-developed patient, in no apparent distress. CARDIOVASCULAR: Regular rate and regular rhythm without murmurs, gallops, or rubs. RESPIRATORY: Clear to auscultation. Breath sounds equal bilaterally. No wheezes , rales, or rhonchi. GASTROINTESTINAL: Abdomen soft, non-tender, nondistended. Normal, active bowel sounds MUSCULOSKELETAL: swelling of the feet has much improved. NEURO: Alert & Oriented x4 to person, place, time, situation. Moves all ext x4 Hospital Course - gouty arthritis- improving continue prednisone in light of renal insufficiency- continue pain control -renal insufficiency ; likely acute kidney injury superimposed on chronic renal insufficiency ( he says that he knew about his kidney dysfunction)- now improved after IV hydration. -diabetes mellitus; resumed home insulin regimen- accu-check with [facility] blood sugar levels expected to improve as prednisone is being tapered off. -hypertension'; hold lisinopril for now- will consider resuming lisinopril if renal function remains stable- will defer to pcp. -bradycardia; will decrease the dose of atenolol to 50 mg po daily- f/u as outpatient. -DVT prophylaxis with subq heparin Pt Condition on Discharge: Good Discharge Disposition: Discharge Home Discharge Time: <= 30 minutes Discharge Instructions DIET: Follow Instructions for: Heart Healthy Diet, Diabetic Diet Activities you can perform: Regular-No Restrictions Follow up Referrals: PCP Follow-up New Medications: Atenolol (Atenolol) 50 Mg Tab 50 MG PO DAILY Blood Pressure Management #30 Ref 0 TAB Prednisone (Prednisone) 5 Mg Tab 5 MG PO DIRECTED 30 mg po daily for two days then 20 mg po daily for two days then 10 mg po daily for two days then 5 mg po daily for two days then stop. Inflammation Days 8 Ref 0 TAB Continued Medications: Allopurinol (Allopurinol) 100 Mg Tab 100 MG PO DAILY Gout #30 Ref 0 TAB Amlodipine (Amlodipine) 10 Mg Tab 10 MG PO DAILY Blood Pressure Management #30 Ref 0 TAB Aspirin (Aspirin Low Dose) 81 Mg Chew 81 MG CHEW DAILY Ref 0 TAB Docusate Sodium (Colace) 100 Mg Cap 100 MG PO BID Constipation #60 Ref 0 CAP Hydrocodone-Acetaminophen (Lortab) 5-325 Mg Tab 1 TAB PO Q6H PRN PAIN #10 Ref 0 TAB (This prescription has been renewed) Insulin Aspart Protam-Asp 70-30 Inj (Novolog Mix 70-30 Inj) 1,000 Unit/10 Ml Vial 1 UNITS SQ Blood Sugar Management #10 Ref 0 ML Pregabalin (Lyrica) 100 Mg Cap 100 MG PO TID #90 Ref 0 CAP Discontinued Medications: Atenolol (Atenolol) 100 Mg Tab 100 MG PO DAILY Blood Pressure Management #30 Ref 0 TAB Furosemide (Lasix) 20 Mg Tab 20 MG PO DAILY #30 Ref 0 TAB Lisinopril (Lisinopril) 40 Mg Tab 40 MG PO DAILY Blood Pressure Management #30 Ref 0 TAB Tad Szymanski MD Feb 06, 2017 09:28
[2017-02-06] MEDS: INSULIN ASPAR PROT 70/30 1,000 UNITS/10 ML VIAL SQ SCH (09:29)
[2017-02-06 12:00] VITALS: BP 133/72; PULSE 58; RESP 16; TEMP 97.8; O2SAT 93
[2017-02-06] MEDS ORDERED: WALKER WHEELS/F1 MIS (12:48)
== END 2017-02-06 14:45 | disposition home or self-care (01) | DRG 554 ==
LOC: NEPC 14:39 → NEDA 17:14 → OBSVTOIN 18:01 → N04A 20:50
PROVIDERS: ADMIT Internal Medicine; ATTEND Internal Medicine
DX: M10.9 Gout, unspecified (principal); N17.9 Acute kidney failure, unspecified; E11.9 Type 2 diabetes mellitus without complications; R00.1 Bradycardia, unspecified; Z79.4 Long term (current) use of insulin; I12.9 Hypertensive chronic kidney disease with stage 1 through stage 4 chronic kidney disease, or unspecified chronic kidney disease; N18.9 Chronic kidney disease, unspecified
CPT/HCPCS: 80048; 80053; 81001; 82948; 83880; 84550; 85025; 85652; 86140; 99284; J1644; J1815; J7030; J7040; J7512